=== PATIENT | male | born 1965 | race Caucasian/White ===

== ENCOUNTER → 2023-08-22 | Emergency (ER) | payer OTHER ==
--- OUTSIDE RECORDS SUMMARY | 2023-08-22 15:09 | XMS REPORT | Continuity of Care Document ---
Author Name Unknown Address [address] [place], [place] [address]onnect Address [address] [place] [address] [address] [place] [address] Care Team Providers Care Gravity Prospector Name Role Phone Unavailable Unavailable Unavailable
--- NOTE | 2023-08-22 16:21 | RAD REPORT ---
EXAM DESCRIPTION: RAD - Shoulder Left 2 View - 08/22/2023 3:37 pm CLINICAL HISTORY: PAIN COMPARISON: No comparisons TECHNIQUE: Internal and external rotation views of the left shoulder were obtained. FINDINGS: There is no fracture or dislocation. AC joint mild degenerative changes. No acute or suspi cious findings. IMPRESSION: No acute osseous abnormality. Mild AC joint degenerative changes.
--- NOTE | 2023-08-22 16:58 | RAD REPORT ---
EXAM DESCRIPTION: CT - Head C Spine Cap Wo Con - 08/22/2023 3:30 pm CLINICAL HISTORY: Pain;Trauma COMPARISON: CT ABD PELVIS W CONTRAST dated 11/10/2007 TECHNIQUE: Head and cervical spine CT images were obtained without IV contrast. Chest, abdomen, and pelvis CT images were obtained also without IV contrast. Multiplanar reformats were generated and rev iewed. All CT scans are performed using dose optimization technique as appropriate and may include automated exposure control or mA/KV adjustment according to patient size. FINDINGS: CT HEAD: No intracranial hemorrhage, mass effect, or edema. No evidence of acute territorial infarct. No midli ne shift or abnormal fluid collection. The ventricles are normal in caliber and configuration for age . Basal cisterns are patent. Mastoid aircells and paranasal sinuses are clear. No acute skull fractur e. CT CERVICAL SPINE: No acute cervical spine fracture or subluxation. Vertebral body heights are well maintained. Facet oli ints are normal in alignment, with up to moderate degenerative changes, most pronounced at L3-4 on th e left. Variable degrees of neural foraminal narrowing up to moderate at L3-4 on the left, and on the right more than left at C5-6 and C6-7. No hyperattenuating canal hematoma. Prevertebral and paraspin ous soft tissues are unremarkable. CT CHEST: No pneumothorax, pulmonary contusion or pleural fluid collection. Right lower lobe solid 8-9 mm round ed nodule abutting the diaphragmatic pleura appears new since the prior exam. No mediastinal hematoma and the aorta and pulmonary arteries are unremarkable. No chest will mass or abnormal axillary findi ng. No displaced rib fracture or other significant bony finding. CT ABDOMEN/ PELVIS: No evidence of traumatic injury to solid abdominal viscera. Gallbladder and biliary tree are unremark able. No bowel injury or significant finding. 2 mm nonobstructing right renal interpolar calculus. Pr obable left ureteral system duplication. No free air, free fluid or abnormal fat stranding. No urinar y bladder abnormality. No significant bony finding. IMPRESSION: No acute traumatic findings. Right lower lobe solid 8-9 mm rounded lung nodule, appears new since the 2007 study. A follow-up CT i n in 6 months is recommended to ensure stability. Degenerative cervical spine changes as above. Nonobstructing right renal 2 mm calculus.
--- NOTE | 2023-08-22 18:00 | EDPHYS ---
Physician Documentation [facility] Name: Luther Alfaro Age: 58 yrs Sex: Male : 1965 Arrival Date: 08/22/2023 Time: 15:06 Bed DX3 Private MD: ED Physician Drake Douglas HPI: 08/22 18:32 This 58 yrs old Male presents to ER via Ambulatory with complaints of Side Pain, Fall kb Injury - about 13ft. 18:32 Patient is a 58-year-old male who fell off of a roof 5 days ago and landed on left kb side. States he has been having left chest, left shoulder, left hip and low back pain since the fall. Denies shortness of breath, LOC, headache.. Historical: - Allergies: 15:17 No Known Allergies; ko1 - Home Meds: 15:17 None [Active]; ko1 - PMHx: 15:17 None; ko1 - Immunization history:: Adult Immunizations up to date. - Social history:: Smoking status: Patient reports the use of cigarette tobacco products, smokes one pack cigarettes per day. ROS: 18:30 Constitutional: Negative for fever, chills, and weight loss, kb 18:30 Cardiovascular: Positive for chest pain, with movement, 18:30 MS/extremity: Positive for decreased range of motion, pain, of the anterior aspect of left shoulder and posterior aspect of left shoulder, 18:30 MS/extremity: Positive for pain, of the left hip, kb 18:30 All other systems are negative, 18:33 Neck: Positive for pain at rest, kb 18:33 Back: Positive for pain at rest, pain with movement, Exam: 18:30 Constitutional: This is a well developed, well nourished patient who is awake, alert, kb and in no acute distress. Head/Face: Normocephalic, atraumatic. ENT: Moist Mucous membranes Cardiovascular: Regular rate Respiratory: Respirations even and unlabored. No increased work of breathing. Talking in full sentences Abdomen/GI: Soft, non-tender. No distention Skin: Warm, dry with normal turgor. Normal color. MS/ Extremity: Pulses equal, no cyanosis. Neurovascular intact. Full, normal range of motion. Neuro: Awake and alert, GCS 15, oriented to person, place, time, and situation. Moves all extremities. Normal gait. 18:30 Chest/axilla: Inspection: normal, Palpation: tenderness, that is mild, Axilla: are normal, Vital Signs: 15:15 BP 157 / 104; Pulse 102; Resp 16; Temp 100; Pulse Ox 100% ; ko1 MDM: 15:16 Patient medically screened. kb 18:31 Data reviewed: vital signs, nurses notes. kb 18:31 Differential diagnosis: closed head injury, contusion, fracture, strain. Counseling: I kb had a detailed discussion with the patient and/or guardian regarding the historical points, exam findings, and any diagnostic results supporting the discharge/admit diagnosis, radiology results, the need for outpatient follow up, a family practitioner, to return to the emergency department if symptoms worsen or persist or if there are any questions or concerns that arise at home. ED course: Discussed incidental finding of nodule in right lower lobe. Educated on recommendations for follow-up CT in 6 months.. 08/22 15:20 Order name: CT Traumagram (Head C Spine CAP wo con); Complete Time: 17:11 kb 08/22 15:20 Order name: Shoulder Left (2 View) XRAY; Complete Time: 16:21 kb Administered Medications: No medications were administered Disposition: 08/23 10:23 I was immediately available on-site in the Emergency Department for consultation in the ms3 care of the patient.. Disposition Summary: 08/22/23 17:59 Discharge Ordered Notes: Location: Home kb Condition: Stable kb Diagnosis - Fall from, out of or through roof, initial encounter kb - Chest pain, unspecified kb - Pain in left shoulder kb - Pain in left hip kb Followup: kb - With: Emergency Department - When: As needed - Reason: Worsening of condition Followup: kb - With: Private Physician - When: 2 - 3 days - Reason: Recheck today's complaints, Continuance of care, Re-evaluation by your physician Discharge Instructions: - Discharge Summary Sheet kb - Musculoskeletal Pain kb - Shoulder Pain, [id number] kb - Chest Wall Pain, [id number] kb Forms: - Medication Reconciliation Form kb - Thank You Letter kb - Antibiotic Education kb - Prescription Opioid Use kb - Patient Portal Instructions kb - Leadership Thank You Letter kb Prescriptions: - Cyclobenzaprine 10 mg Oral tablet - take 1 tablet ORAL route every 8 hours As needed; 21 tablet; Refills: 0, kb Product Selection Permitted - Diclofenac Sodium 75 mg Oral tablet, delayed release (enteric coated) - take 1 tablet ORAL route 2 times per day As needed; 30 tablet; Refills: 0, kb Product Selection Permitted Signatures: Dispatcher [employer] Emma Montejo FNP-C FNP-Drake Campo DO DO ms3 Sade Martin, RN RN ko1
--- NOTE | 2023-08-22 18:00 | ER ---
Nurse's Notes [facility] Name: Luther Alfaro Age: 58 yrs Sex: Male : 1965 Arrival Date: 08/22/2023 Time: 15:06 Bed DX3 Private MD: Diagnosis: Fall from, out of or through roof, initial encounter;Chest pain, unspecified;Pain in left shoulder;Pain in left hip Presentation: 08/22 15:15 Chief complaint: Patient states: fell about 13ft about 5 days ago, left ribs, left and ko1 right hip, left shoulder, groin all hurt. It seems to be getting worse. Coronavirus screen: At this time, the client does not indicate any symptoms associated with coronavirus-19. Ebola Screen: No symptoms or risks identified at this time. Initial Sepsis Screen: Does the patient meet any 2 criteria? Does the patient have a suspected source of infection? No. Patient's initial sepsis screen is negative. Risk Assessment: Do you want to hurt yourself or someone else? Patient reports no desire to harm self or others. Onset of symptoms is unknown. 15:15 Method Of Arrival: Ambulatory ko1 15:15 Acuity: VINCE 4 ko1 Triage Assessment: 15:17 General: Appears in no apparent distress. Behavior is calm, cooperative, appropriate ko1 for age. Pain: Complains of pain in right and left hip, left ribs, left shoulder, groin, neck. Historical: - Allergies: 15:17 No Known Allergies; ko1 - Home Meds: 15:17 None [Active]; ko1 - PMHx: 15:17 None; ko1 - Immunization history:: Adult Immunizations up to date. - Social history:: Smoking status: Patient reports the use of cigarette tobacco products, smokes one pack cigarettes per day. Screenin:10 [facility] ED Fall Risk Assessment (Adult) History of falling in the last 3 months, ap3 including since admission Yes- single mechanical fall (1 pt). Abuse screen: Denies threats or abuse. Nutritional screening: No deficits noted. Tuberculosis screening: No symptoms or risk factors identified. Vital Signs: 15:15 BP 157 / 104; Pulse 102; Resp 16; Temp 100; Pulse Ox 100% ; ko1 ED Course: 15:11 Patient arrived in ED. mg5 15:16 Emma Krishnamurthy [facility]C [facility] kb 15:16 Drake Douglas DO is Attending Physician. kb 15:17 Triage completed. ko1 15:17 Arm band placed on right wrist. Patient placed in waiting room, Patient notified of ko1 wait time. 15:32 CT Traumagram (Head C Spine CAP wo con) In Process Unspecified. EDMS 15:38 Shoulder Left (2 View) XRAY In Process Unspecified. EDMS 18:10 Provided Education on: discharge intructions. ap3 18:10 Patient has correct armband on for positive identification. Adult w/ patient. ap3 18:10 No provider procedures requiring assistance completed. Patient did not have IV access ap3 during this emergency room visit. Administered Medications: No medications were administered Medication: 18:10 VIS not applicable for this client. ap3 Outcome: 17:59 Discharge ordered by MD. kb 18:10 Discharged to home ambulatory, ap3 18:10 Condition: good 18:10 Discharge instructions given to patient, family, Instructed on discharge instructions, follow up and referral plans. medication usage, Demonstrated understanding of instructions, follow-up care, medications, Prescriptions given X 2, 18:11 Patient left the ED. ap3 Signatures: Dispatcher [employer] EDMS Emma Krishnamurthy FNP-C FNP-Ckb Prokisch, Amanda, RN RN ap3 Sade Martin, BALDOMERO RN ko1 Shraddha Pinto mg5
== END ==
LOC: ER 15:06
DX: R07.9 Chest pain, unspecified (principal); M25.512 Pain in left shoulder; M25.552 Pain in left hip; W13.2XXA Fall from, out of or through roof, initial encounter; F17.210 Nicotine dependence, cigarettes, uncomplicated
CPT/HCPCS: 70450; 71250; 72125